=== PATIENT | female | born 1980 | race African-American/Black ===

== ENCOUNTER 2019-07-20 06:20 | Inpatient (IN) | payer OTHER ==
[2019-07-20] MEDS ORDERED: CITRIC ACID/SODIUM CITRATE 30 ML UNIT-DOSE CUP PO ONE (07:00)
[2019-07-20 07:02] VITALS: BMI 32.1
[2019-07-20] MEDS ORDERED: ELECTROLYTE-148 SOLN 1,000 ML IV ONE (07:30)
[2019-07-20] MEDS ORDERED: ELECTROLYTE-148 SOLN 1,000 ML IV SCH ×2 (07:30→08:00)
[2019-07-20] MEDS ORDERED: ONDANSETRON 4 MG/2 ML VIAL IVPUSH PRN (07:39)
--- NOTE | 2019-07-20 08:13 | HP ---
Past Medical History - Primary Care Physician PCP:: Jay Jay Acuna - Admission Chief Complaint: 38 weeks, IDDM,HTN, obesity , fibroid uterus, breech. ama History of Present Illness: 38 yo f with hx of IDDM on insulin pump. chronic HTN , fibroid uterus, iugr, AMA, previous c/s, obesity. admitted for repeat c/s, procedure risks discussed History Source: Patient Limitations to Obtaining History: No Limitations - Past Medical History Cardiovascular: Yes: HTN (on labetalol and nifedpine) ...: 5 ...Para: 1 ...Term: 0 ...: 1 ...Spon : 3 ...Induced : 0 ...Multiple Gestation: 0 ...EDC by Sono: 07/31/19 Heme/Onc: Yes: Anemia - Past Surgical History Past Surgical History: Yes: Hx Myomectomy: No Hx Transabdominal Cerclage: No - Smoking History Smoking history: Never smoked Have you smoked in the past 12 months: No - Alcohol/Substance Use Hx Alcohol Use: No History of Substance Use: reports: None - Social History History of Recent Travel: No Home Medications - Allergies Allergies/Adverse Reactions: Allergies Allergy/AdvReac Type Severity Reaction Status Date / Time No Known Allergies Allergy Verified 07/20/19 07:18 - Home Medications Home Medications: Ambulatory Orders Labetalol HCl [Normodyne -] 200 mg PO BID 02/17/15 95/Iron Fum/Folic/Dha [ + Dha Combo Pack] 1 each PO DAILY 02/17 Insulin Pump [Insulin Pump - (Nf)] 1 pump SQ PRN 07/08/19 Nifedipine [Procardia Xl] 1 tab PO DAILY 07/15/19 Review of Systems - Review of Systems Constitutional: reports: No Symptoms Eyes: reports: No Symptoms HENT: reports: No Symptoms Neck: reports: No Symptoms Cardiovascular: reports: No Symptoms Respiratory: reports: No Symptoms Gastrointestinal: reports: No Symptoms Genitourinary: reports: No Symptoms Breasts: reports: No Symptoms Reported Musculoskeletal: reports: No Symptoms Integumentary: reports: No Symptoms Neurological: reports: No Symptoms Endocrine: reports: No Symptoms Hematology/Lymphatic: reports: No Symptoms Physical Exam - Maternity Vital Signs: Vital Signs Temperature 98.1 F 07/20/19 07:30 Pulse Rate 70 07/20/19 07:30 Respiratory Rate 18 07/20/19 07:30 Blood Pressure 141/74 07/20/19 07:30 O2 Sat by Pulse Oximetry (%) Constitutional: Yes: Well Nourished, No Distress, Calm, Obese Eyes: Yes: WNL, Conjunctiva Clear, EOM Intact HENT: Yes: WNL, Atraumatic, Normocephalic Neck: Yes: WNL, Supple, Trachea Midline, Thyromegaly Cardiovascular: Yes: WNL, Regular Rate and Rhythm Breast(s): Yes: WNL - Abdominal Exam/OB Fundal Height: 40 Number of Fetuses: Single Presentation: Vertex Contractions: No Intensity: Unaware Heart Rate Location: [facility] Category: I Accelerations: Non-Uniform Decelerations: None - Vaginal Exam/OB Vaginal Bleediing: No Speculum Exam: No Dilatation (cm): closed Effacement (%): 0 Amniotic Membrane Status: Intact Presentation: Lukasz Breech Station: -3 - Physical Exam Musculoskeletal: Yes: WNL Edema: Yes Edema: LLE: Trace, RLE: Trace Deep Tendon Reflex Grade: Normal +2 ...Motor Strength: WNL Psychiatric: Yes: WNL Hemorrhage Risk Assessment - Risk Factors Medium Risk Factors: Yes: Prior , uterine surgery,or multiple laparotomies, Obesity (BMI >40) Risk Score: 2 Risk Level: High Risk Problem List - Problems (1) with 38 completed weeks gestation Code(s): Z3A.38 - 38 WEEKS GESTATION OF (2) Chronic hypertension affecting Code(s): O10.919 - UNSP PRE-EXISTING HTN COMP , UNSP TRIMESTER (3) Insulin dependent diabetes mellitus Code(s): E11.9 - TYPE 2 DIABETES MELLITUS WITHOUT COMPLICATIONS; Z79.4 - INFORMATICA DEVELOPER (CURRENT) USE OF INSULIN (5) Fibroid, uterine Code(s): D25.9 - LEIOMYOMA OF UTERUS, UNSPECIFIED Qualifiers: Uterine leiomyoma location: intramural Qualified Code(s): D25.1 - Intramural leiomyoma of uterus (6) Advanced maternal age (AMA) in Code(s): [id number] - (7) Obesity Code(s): E66.9 - OBESITY, UNSPECIFIED Qualifiers: Serious obesity comorbidity presence: with serious comorbidity (8) Breech presentation Code(s): O32.1XX0 - MATERNAL CARE FOR BREECH PRESENTATION, UNSP Assessment/Plan admit for repeat c/s, risks discussed
[2019-07-20] MEDS ORDERED: OXYTOCIN 20 UNITS in 0.9% NS 20 UNIT/1,000 ML INFUS.BAG IV ONE ×2 (08:14→10:49)
[2019-07-20] MEDS ORDERED: KETOROLAC TROMETHAMINE 30 MG/1 ML VIAL ONE (08:16)
[2019-07-20] MEDS ORDERED: DEXAMETHASONE SOD PHOSPHATE 4 MG/1 ML VIAL ONE (08:16)
[2019-07-20] MEDS ORDERED: ceFAZolin SODIUM 1 GM VIAL ONE (08:39)
[2019-07-20] MEDS ORDERED: NIFEdipine E.R. 30 MG TABLET PO SCH (10:00)
[2019-07-20] MEDS ORDERED: LABETALOL HCL 200 MG TABLET (FP) PO SCH ×2 (10:00→22:00)
[2019-07-20] MEDS ORDERED: OXYTOCIN 20 UNITS in 0.9% NS 20 UNIT/1,000 ML INFUS.BAG IV SCH (10:30)
[2019-07-20] MEDS ORDERED: WITCH HAZEL 50% (TUCKS) 40 PAD/JAR PAD TP PRN (10:30)
[2019-07-20] MEDS ORDERED: BENZOCAINE 28 GM HEMORRHOIDAL OINTMENT PR PRN (10:30)
[2019-07-20] MEDS ORDERED: SIMETHICONE 80 MG TAB.CHEW (FP) PO PRN (10:30)
[2019-07-20] MEDS ORDERED: BENZOCAINE 20% 57 GM BOTTLE TP PRN (10:30)
[2019-07-20] MEDS ORDERED: METHYLERGONOVINE MALEATE 0.2 MG/1 ML AMP IM PRN (10:30)
[2019-07-20] MEDS ORDERED: oxyCODONE HCL 5 MG TABLET PO PRN ×2 (10:30)
[2019-07-20] MEDS ORDERED: diphenhydrAMINE HCL 25 MG CAPSULE (FP) PO PRN (10:30)
[2019-07-20] MEDS ORDERED: IBUPROFEN 800 MG/8 ML IJ IVPB PRN (10:30)
--- NOTE | 2019-07-20 10:44 | OP ---
Operative Note - Note: Operative Date: 07/20/19 Pre-Operative Diagnosis: preganacy 38 weeks, IDDM, CHTN , previous c/s, IUGR. AMA, fibroid uterus, obesity Operation: repeat LST c/s , lysis of pelvic adhesion Findings: live baby boy footling breech, S/A , 7/9 , , dense pelvic adhesion Post-Operative Diagnosis: Other (p) Surgeon: Jay Jay Acuna Wharf Worker: Sandeep House Anesthesia: Spinal Specimens Removed: placenta Estimated Blood Loss (mls): 700 Drains & Tubes with Location: [facility] Blood Volume Replaced (mls): 0 Operative Report Dictated: Yes
--- NOTE | 2019-07-20 11:42 | CONSULT ---
Consult Consult Specialty:: Endocrine Referred by:: Dr.Razmzan Goyal Reason for Consultation:: DMT1 - History of Present Illness Chief Complaint: post csection History of Present Illness: 38 y female,pmh Type 1 DM,preganacy 38 weeks, CHTN , previous c/s, IUGR. sp csection,post op has bs,171mg/dl,she denies nausea ,vomiting or chest pain,she is awake alert and wishes to continue using the insulin pump. - Past Medical History Cardio/Vascular: Yes: HTN (on labetalol and nifedpine) - Past Surgical History Past Surgical History: Yes: - Alcohol/Substance Use Hx Alcohol Use: No History of Substance Use: reports: None - Smoking History Smoking history: Never smoked Have you smoked in the past 12 months: No - Social History History of Recent Travel: No Home Medications - Allergies Allergies/Adverse Reactions: Allergies Allergy/AdvReac Type Severity Reaction Status Date / Time No Known Allergies Allergy Verified 07/20/19 07:18 - Home Medications Home Medications: Ambulatory Orders Labetalol HCl [Normodyne -] 200 mg PO BID 02/17/15 95/Iron Fum/Folic/Dha [ + Dha Combo Pack] 1 each PO DAILY 02/17 Insulin Pump [Insulin Pump - (Nf)] 1 pump SQ PRN 07/08/19 Nifedipine [Procardia Xl] 1 tab PO DAILY 07/15/19 Review of Systems - Review of Systems Constitutional: reports: No Symptoms Eyes: reports: No Symptoms HENT: reports: No Symptoms Neck: reports: No Symptoms Cardiovascular: reports: No Symptoms Respiratory: reports: No Symptoms Gastrointestinal: reports: No Symptoms Genitourinary: reports: No Symptoms Musculoskeletal: reports: No Symptoms Integumentary: reports: No Symptoms Neurological: reports: No Symptoms Endocrine: reports: No Symptoms Physical Exam Vital Signs: Vital Signs Temperature 97.8 F 07/20/19 09:55 Pulse Rate 68 07/20/19 11:15 Respiratory Rate 18 07/20/19 11:15 Blood Pressure 134/80 07/20/19 11:15 O2 Sat by Pulse Oximetry (%) 99 07/20/19 11:15 Constitutional: Yes: Calm Eyes: Yes: WNL HENT: Yes: WNL Neck: Yes: WNL Cardiovascular: Yes: WNL Respiratory: Yes: WNL Gastrointestinal: Yes: WNL ...Rectal Exam: Yes: Deferred Musculoskeletal: Yes: WNL Extremities: Yes: WNL Edema: No Peripheral Pulses WNL: Yes Neurological: Yes: Alert, Oriented Problem List - Problems (1) Advanced maternal age (AMA) in Problems reviewed: Yes Code(s): [id number] - (2) Breech presentation Problems reviewed: Yes Code(s): O32.1XX0 - MATERNAL CARE FOR BREECH PRESENTATION, UNSP (3) Chronic hypertension affecting Problems reviewed: Yes Code(s): O10.919 - UNSP PRE-EXISTING HTN COMP , UNSP TRIMESTER (4) Insulin dependent diabetes mellitus Problems reviewed: Yes Code(s): E11.9 - TYPE 2 DIABETES MELLITUS WITHOUT COMPLICATIONS; Z79.4 - SENIOR DESIGNER/ART DIRECTOR (CURRENT) USE OF INSULIN Assessment/Plan Current Active Problems Advanced maternal age (AMA) in (Acute) Breech presentation (Acute) Chronic hypertension affecting (Acute) Fibroid, uterine (Acute) IUGR (intrauterine growth restriction) (Acute) Insulin dependent diabetes mellitus (Acute) Obesity (Acute) with 38 completed weeks gestation (Acute) Abnormal Lab Results 07/20/19 08:55 Cord Blood PO2 < 49 H Cord Base Excess -4.0 L Laboratory Results - last 24 hr 07/20/19 07/20/19 07/20/19 07:25 08:55 10:32 Cord Blood pH 7.30 Cord Blood PCO2 46.8 Cord Blood PO2 < 49 H Cord Blood HCO3 22.3 Cord Base Excess -4.0 L POC Glucometer 153 171 Laboratory Tests 02/20/15 07/18/19 00:39 10:09 Sodium 136 Potassium 4.1 Chloride 108 H Carbon Dioxide 21 Anion Gap 7 L BUN 12.4 Creat Clearance w eGFR > 60 Creatinine 1.0 Est GFR (CKD-EPI)AfAm 83.35 Est GFR (CKD-EPI)NonAf 71.91 Random Glucose 73 L plan: bgm q4hr insulin pump Radiant Zemax using novolog 1.4u/hr patient is capable and aware on using insulin pump no contraindication to using pump.
[2019-07-20] MEDS: INSULIN SLIDING SCALE (NOVOLOG) 1 VIAL SQ SCH ×3 (11:56→20:04)
--- NOTE | 2019-07-20 13:05 | CONSULT ---
Consult - text type - Consultation Consultation Note: Renal consult for hypertension This is a 38 year old woman with history of essential hypertension, DM type 2 on insulin pump who presented at 38 weeks gestation for scheduled now with hypertension. Pt reports that her BP was well controlled on Nifedpner ER and Labetalol during her . She feels well, denies any chest pain, shortness, of breath, headache, nausea/ vomiting. She is making urine. She has mild legs swelling. PMhx: as above Allergies: NKDA Family hx; NC Social Hx: No T/A/D ROS: As per HPI, all other pertinent ros negative Home Medications Medication Instructions Recorded Labetalol HCl [Normodyne -] 200 mg PO BID 02/17/15 95/Iron Fum/Folic/Dha 1 each PO DAILY 02/17/15 [ + Dha Combo Pack] Insulin Pump [Insulin Pump - (Nf)] 1 pump SQ PRN 07/08/19 Nifedipine [Procardia Xl] 1 tab PO DAILY 07/15/19 Vital Signs Temperature 97.8 F 07/20/19 09:55 Pulse Rate 52 L 07/20/19 12:00 Respiratory Rate 18 07/20/19 12:00 Blood Pressure 142/72 07/20/19 12:00 O2 Sat by Pulse Oximetry (%) 99 07/20/19 11:15 Intake & Output 07/17/19 07/18/19 07/19/19 07/20/19 23:59 23:59 23:59 23:59 Intake Total 2900 Output Total 1900 Balance 1000 Weight 90.265 kg NAD awake and alert neck supple no JVD RRR CTA no LE edmea no focal neurologic deficits Current Medications Benzocaine (Americaine 20% [place] -) 1 spray TP PRN PRN PRN Reason: Pain - Topical Benzocaine (Americaine Ointment -) 1 applic MS PRN PRN PRN Reason: Pain - Topical Bisacodyl (Dulcolax Suppository -) 10 mg MS PRN PRN PRN Reason: CONSTIPATION Diphenhydramine HCl (Benadryl Injection -) 25 mg IVPUSH Q4H PRN PRN Reason: Pruritis Diphenhydramine HCl (Benadryl -) 25 mg PO Q8H PRN PRN Reason: FOR ITCHING Enoxaparin Sodium (Lovenox -) 40 mg SQ DAILY [facility] Dextrose/Lactated Ringer's (D5-Lr -) 1,000 mls @ 125 mls/hr IV ASDIR [facility] Oxytocin/Sodium Chloride (Normal Saline+20 Units Oxytocin -) 20 unit in 1,000 mls @ 125 mls/hr IV ASDIR [facility] Stop: 07/20/19 18:29 Last Admin: 07/20/19 10:38 Dose: 125 mls/hr Cefazolin Sodium/Dextrose (Ancef 2 Gm Premixed Ivpb -) 2 gm in 50 mls @ 100 mls /hr IVPB Q8H-IV [facility] Stop: 07/21/19 17:59 Ibuprofen (Motrin -) 600 mg PO Q4H PRN PRN Reason: PAIN LEVEL 1 - 3 Ibuprofen (Caldolor Injection -) 800 mg IVPB Q6H PRN PRN Reason: PAIN > 5 if PO not effective. Insulin Aspart (Novolog Vial Sliding Scale -) 1 vial SQ Q4H [facility]; Protocol Last Admin: 07/20/19 11:56 Dose: 1.3 units Labetalol HCl (Normodyne -) 200 mg PO BID [facility] Methylergonovine Maleate (Methergine Injection -) 0.2 mg IM Q4H PRN PRN Reason: EXCESSIVE BLEEDING Nifedipine (Procardia Xl -) 30 mg PO DAILY [facility] Ondansetron HCl (Zofran Injection) 4 mg IVPUSH Q4H PRN PRN Reason: NAUSEA Oxycodone HCl (Roxicodone -) 5 mg PO Q4H PRN PRN Reason: PAIN LEVEL 4 - 6 Oxycodone HCl (Roxicodone -) 10 mg PO Q4H PRN PRN Reason: PAIN LEVEL 7 - 10 Senna/Docusate Sodium (Pericolace -) 2 tablet PO HS PRN PRN Reason: CONSTIPATION Simethicone (Mylicon -) 80 mg PO Q4H PRN PRN Reason: GAS Witch Madelaine/Glycerin (Tucks Pads -) 1 pad TP PRN PRN PRN Reason: Pain - Topical 38 year old woman with history of essential hypertension, DM type 2 on insulin pump who presented at 38 weeks gestation for scheduled C- section now with hypertension. 1. hypertension r/o preeclampsia 2. Essential hypertension 3. 38 weeks gestation s/p 4. Type 2 DM Check Urine protein to creatinine ratio Check CMP in AM Continue home medications: Labetalol 400mg BID and Nifedipine 30mg daily low sat diet minamize NSAID use Monitor BP closely Thank you Andres Whitney DO
[2019-07-20] MEDS ORDERED: ceFAZolin 2 GRAM PREMIX BAG IVPB SCH (18:00)
[2019-07-20] MEDS: CEFAZOLIN 2 GM/D5W 2 GM/50 ML ML IVPB SCH (18:20)
--- NOTE | 2019-07-20 18:55 | OP ---
DATE OF OPERATION: 07/20/2019 PREOPERATIVE DIAGNOSIS: 38 weeks, intrauterine growth restriction, chronic hypertension, insulin-dependent diabetes, breech presentation, previous section and fibroid uterus. POSTOPERATIVE DIAGNOSIS: 38 weeks, intrauterine growth restriction, chronic hypertension, insulin-dependent diabetes, breech presentation, previous section, fibroid uterus and pelvic adhesions. PROCEDURE PERFORMED: Repeat low-segment transverse section and lysis of pelvic adhesions. ESTIMATED BLOOD LOSS: 700 mL. SURGEON: Franklin Acuna MD BUILD MANAGER: MACEY Harper ANESTHESIA: Spinal. ANESTHESIOLOGIST: Ayush Frias M.D. FINDINGS: A live baby boy with Apgars of 7 and 9. Footling breech, delivered as a breech. Pelvic adhesions. DESCRIPTION OF PROCEDURE: The patient was taken to the operating room and had adequate spinal anesthesia. Abdomen and perineum were prepped and draped. A Pfannenstiel abdominal skin incision was made. The abdominal wall was cut layer by layer, until the peritoneum was reached. At this time the peritoneum was grasped with a Chelsy clamp and entered. There were multiple uterine and peritoneal adhesions. These adhesions were lysed meticulously with Metzenbaum scissors. Hemostasis was established. The uterus had a fibroid in the lower part of the uterus, which was adherent to the bladder. At this time the bladder adhesions were released from the fibroid and the bladder was pushed down. Then, because of the adhesions, the muscle had to be cut to create more room. Then a low transverse uterine incision was made. The incision was extended laterally with bandage scissors. The amniotic sac was entered. Clear fluid. The baby was delivered via breech without difficulty. Nasopharynx was suctioned and live baby boy was delivered with Apgars of 7 and 9. The placenta was delivered manually. The uterine cavity was cleaned of all remaining tissue. The uterine incision was closed in 2 layers, the 1st layer with 0 Biosyn continuous suture and the 2nd layer with 0 Biosyn imbricating the 1st layer. There was a small amount of bleeding at the left uterine incision, which was sutured with interrupted suture of 0 Biosyn and hemostasis was evaluated. Then the pelvic cavity was irrigated several times. No active bleeding was seen. Both tubes and ovaries were okay. Could not close the peritoneum because of adhesions. The muscles were brought together with interrupted suture of 0 Biosyn. Then the fascia was closed with 0 Biosyn continuous suture, the subcutaneous fat with interrupted suture of 0 Biosyn, and the skin was closed with marcos. The patient tolerated the procedure well, and left the OR in good condition. FRANKLIN ACUNA M.D. [id number]
[2019-07-20] MEDS: DEXTROSE 5%-LACTATED RINGERS 1,000 ML IV SCH ×2 (19:45→21:13)
[2019-07-20] MEDS: LABETALOL HCL 200 MG TABLET (FP) PO SCH (21:15)
[2019-07-21] MEDS: INSULIN SLIDING SCALE (NOVOLOG) 1 VIAL SQ SCH ×5 (00:01→16:56)
[2019-07-21] MEDS: CEFAZOLIN 2 GM/D5W 2 GM/50 ML ML IVPB SCH ×2 (02:20→10:04)
[2019-07-21] MEDS: DEXTROSE 5%-LACTATED RINGERS 1,000 ML IV SCH (05:52)
[2019-07-21 08:14] LABS: BASO % 0.6 % (0-2.0); EOS % 1.5 % (0-4.5); HEMATOCRIT 26.2 % (32.4-45.2); HEMOGLOBIN 8.8 GM/dL (10.7-15.3); LYMPH % 15.8 % (8-40); MCH 29.9 pg (25.7-33.7); MCHC 33.5 g/dl (32.0-36.0); MEAN CELL VOLUME 89.3 fl (80-96); MEAN PLT VOLUME 8.3 fl (7.5-11.1); NEUT % 74.1 % (42.8-82.8); PLATELET COUNT 233 K/MM3 (134-434); RBC 2.94 M/mm3 (3.60-5.2); RDW 13.4 % (11.6-15.6); WHITE BLOOD COUNT 13.7 K/mm3 (4.0-10.0)
--- NOTE | 2019-07-21 08:31 | PN ---
Post Progress Note - Subjective Subjective: Patient without acute complaints. Denies headache, change in vision, right upper quadrant pain. Reports tolerating oral intake without nausea or vomiting. Ambulating without dizziness. Denies fevers or chills. Pain well controlled with oral pain medication. without difficulty. Passing flatus. Post Day: 1 Type of Delivery: Repeat C/S Vital Signs: Vital Signs Temperature 97.9 F 07/21/19 05:46 Pulse Rate 60 07/21/19 05:46 Respiratory Rate 18 07/21/19 06:00 Blood Pressure 134/84 07/21/19 05:46 O2 Sat by Pulse Oximetry (%) 99 07/20/19 11:15 Breast Exam: Yes: Soft Uterus: Yes: Fundus Firm Incision: Yes: Dressing dry and intact Abdomen/GI: Yes: Abdomen soft, Abdominal Distention (+ mild soft), Tender ( incisional), Passing flatus, Tolerating PO Lochia: Yes: Rubra Lochia, amount: Moderate Extremities: Yes: Calves non-tender, Edema (trace) Activity: Ambulating - Labs Labs: CBC WBC 13.7 K/mm3 (4.0-10.0) H 07/21/19 07:44 RBC 2.94 M/mm3 (3.60-5.2) L 07/21/19 07:44 Hgb 8.8 GM/dL (10.7-15.3) L 07/21/19 07:44 Hct 26.2 % (32.4-45.2) L 07/21/19 07:44 MCV 89.3 fl (80-96) 07/21/19 07:44 MCH 29.9 pg (25.7-33.7) 07/21/19 07:44 MCHC 33.5 g/dl (32.0-36.0) 07/21/19 07:44 RDW 13.4 % (11.6-15.6) 07/21/19 07:44 Plt Count 233 K/MM3 (134-434) 07/21/19 07:44 MPV 8.3 fl (7.5-11.1) 07/21/19 07:44 Absolute Neuts (auto) 10.1 K/mm3 (1.5-8.0) H 07/21/19 07:44 Neutrophils % 74.1 % (42.8-82.8) D 07/21/19 07:44 Lymphocytes % 15.8 % (8-40) D 07/21/19 07:44 Monocytes % 8.0 % (3.8-10.2) 07/21/19 07:44 Eosinophils % 1.5 % (0-4.5) 07/21/19 07:44 Basophils % 0.6 % (0-2.0) 07/21/19 07:44 Nucleated RBC % 0 % (0-0) 07/21/19 07:44 Assessment/Plan 38 yo POD # 1 s/p R CD, afebrile, vital signs stable, doing well 1. Continue routine care. 2. AM CBC with mild anemia 3. DM 2 - appreciate endocrine input; will continue FS Q4 Per recommendations, will cover with insulin pump as needed 4. cHTN - on Labetalol 400mg BID and Nifedipine 30mg daily, appreciate renal input BPs within normal range Will monitor for signs of worsening htn or PEC 5. Rh positive status, no rhogam indicated. 7. Encourage ambulation 8. Continue oral pain medication 9. Anticipate discharge home day #2
[2019-07-21] MEDS: NIFEdipine E.R. 30 MG TABLET PO SCH (10:01)
[2019-07-21] MEDS: LABETALOL HCL 200 MG TABLET (FP) PO SCH ×2 (10:01→21:30)
[2019-07-21] MEDS: ENOXAPARIN NA (PORCINE) 40 MG/0.4 ML DISP.SYRIN SQ SCH (10:04)
[2019-07-21] MEDS ORDERED: BISACODYL 10 MG SUPP.RECT PR PRN (10:30)
--- NOTE | 2019-07-21 12:29 | PN ---
Progress Note (short form) - Note Progress Note: Renal follow up for hypertension Seen and examined at the bedside awake and alert no acute complaints no MCKEON, chest pain, abdominal pain Vital Signs Temperature 97.9 F 07/21/19 05:46 Pulse Rate 60 07/21/19 05:46 Respiratory Rate 18 07/21/19 06:00 Blood Pressure 134/84 07/21/19 05:46 O2 Sat by Pulse Oximetry (%) 99 07/20/19 11:15 Intake & Output 07/18/19 07/19/19 07/20/19 07/21/19 23:59 23:59 23:59 23:59 Intake Total 4400 1050 Output Total 3300 700 Balance 1100 350 Weight 90.265 kg NAD RRR CTA no LE edmea CBC, BMP 07/21/19 07:44 Current Medications Benzocaine (Americaine 20% [place] -) 1 spray TP PRN PRN PRN Reason: Pain - Topical Benzocaine (Americaine Ointment -) 1 applic HI PRN PRN PRN Reason: Pain - Topical Bisacodyl (Dulcolax Suppository -) 10 mg HI PRN PRN PRN Reason: CONSTIPATION Diphenhydramine HCl (Benadryl Injection -) 25 mg IVPUSH Q4H PRN PRN Reason: Pruritis Diphenhydramine HCl (Benadryl -) 25 mg PO Q8H PRN PRN Reason: FOR ITCHING Enoxaparin Sodium (Lovenox -) 40 mg SQ DAILY [facility] Last Admin: 07/21/19 10:04 Dose: 40 mg Dextrose/Lactated Ringer's (D5-Lr -) 1,000 mls @ 125 mls/hr IV ASDIR [facility] Last Admin: 07/21/19 05:52 Dose: 125 mls/hr Cefazolin Sodium/Dextrose (Ancef 2 Gm Premixed Ivpb -) 2 gm in 50 mls @ 100 mls /hr IVPB Q8H-IV [facility] Stop: 07/21/19 17:59 Last Admin: 07/21/19 10:04 Dose: 100 mls/hr Ibuprofen (Motrin -) 600 mg PO Q4H PRN PRN Reason: PAIN LEVEL 1 - 3 Ibuprofen (Caldolor Injection -) 800 mg IVPB Q6H PRN PRN Reason: PAIN > 5 if PO not effective. Insulin Aspart (Novolog Vial Sliding Scale -) 1 vial SQ Q4H [facility]; Protocol Last Admin: 07/21/19 12:20 Dose: Not Given Labetalol HCl (Normodyne -) 400 mg PO BID [facility] Last Admin: 07/21/19 10:01 Dose: 400 mg Methylergonovine Maleate (Methergine Injection -) 0.2 mg IM Q4H PRN PRN Reason: EXCESSIVE BLEEDING Nifedipine (Procardia Xl -) 30 mg PO DAILY [facility] Last Admin: 07/21/19 10:01 Dose: 30 mg Ondansetron HCl (Zofran Injection) 4 mg IVPUSH Q4H PRN PRN Reason: NAUSEA Oxycodone HCl (Roxicodone -) 5 mg PO Q4H PRN PRN Reason: PAIN LEVEL 4 - 6 Oxycodone HCl (Roxicodone -) 10 mg PO Q4H PRN PRN Reason: PAIN LEVEL 7 - 10 Senna/Docusate Sodium (Pericolace -) 2 tablet PO HS PRN PRN Reason: CONSTIPATION Simethicone (Mylicon -) 80 mg PO Q4H PRN PRN Reason: GAS Witch Madelaine/Glycerin (Tucks Pads -) 1 pad TP PRN PRN PRN Reason: Pain - Topical 38 year old woman with history of essential hypertension, DM type 2 on insulin pump who presented at 38 weeks gestation for scheduled C- section now with hypertension. 1. hypertension r/o preeclampsia 2. Essential hypertension 3. 38 weeks gestation s/p 4. Type 2 DM Urine protein to creatinine ratio is 2.3 consistant with preeclampsia Continue home medications: Labetalol 400mg BID and Nifedipine 30mg daily BP is moderated minamize NSAID use Low sodium diet Thank you Andres Whitney DO
--- NOTE | 2019-07-21 13:26 | PN ---
Progress Note (short form) - Note Progress Note: Anesthesia postop note 38 y/o F with preeclampsia, s/p spinal anesthesia/duramorph for repeat section. POD#1, vss, aaox3, pain well controlled, sensory motor intact distally. No anesthesia complications.
[2019-07-21] MEDS: IBUPROFEN 600 MG TABLET (FP) PO PRN (16:50)
[2019-07-22] MEDS: INSULIN SLIDING SCALE (NOVOLOG) 1 VIAL SQ SCH ×6 (01:00→22:36)
--- NOTE | 2019-07-22 08:24 | PN ---
Post Progress Note - Subjective Subjective: Patient reports had chills, had 100.2 temperature Mild cough No sick contacts No severe abdominal / uterine pain Denies headache, change in vision, right upper quadrant pain. Reports tolerating oral intake without nausea or vomiting. Ambulating without dizziness. Denies fevers or chills. Pain well controlled with oral pain medication. without difficulty. Passing flatus. Post Day: 2 Type of Delivery: Repeat C/S Vital Signs: Vital Signs Temperature 98.6 F 07/22/19 06:47 Pulse Rate 85 07/22/19 06:47 Respiratory Rate 07/22/19 06:47 Blood Pressure 158/78 07/22/19 06:47 O2 Sat by Pulse Oximetry (%) 99 07/20/19 11:15 Uterus: Yes: Fundus Firm, Fundus below umbilicus Incision: Yes: [place] intact. No: Redness, Oozing Abdomen/GI: Yes: Abdomen soft, Abdominal Distention (mild ), Tender (uterine tenderness, mild), Passing flatus, Tolerating PO Lochia: Yes: Rubra Lochia, amount: Small Extremities: Yes: Calves non-tender, Edema (trace) Activity: Ambulating - Labs Labs: CBC WBC 13.7 K/mm3 (4.0-10.0) H 07/21/19 07:44 RBC 2.94 M/mm3 (3.60-5.2) L 07/21/19 07:44 Hgb 8.8 GM/dL (10.7-15.3) L 07/21/19 07:44 Hct 26.2 % (32.4-45.2) L 07/21/19 07:44 MCV 89.3 fl (80-96) 07/21/19 07:44 MCH 29.9 pg (25.7-33.7) 07/21/19 07:44 MCHC 33.5 g/dl (32.0-36.0) 07/21/19 07:44 RDW 13.4 % (11.6-15.6) 07/21/19 07:44 Plt Count 233 K/MM3 (134-434) 07/21/19 07:44 MPV 8.3 fl (7.5-11.1) 07/21/19 07:44 Absolute Neuts (auto) 10.1 K/mm3 (1.5-8.0) H 07/21/19 07:44 Neutrophils % 74.1 % (42.8-82.8) D 07/21/19 07:44 Lymphocytes % 15.8 % (8-40) D 07/21/19 07:44 Monocytes % 8.0 % (3.8-10.2) 07/21/19 07:44 Eosinophils % 1.5 % (0-4.5) 07/21/19 07:44 Basophils % 0.6 % (0-2.0) 07/21/19 07:44 Nucleated RBC % 0 % (0-0) 07/21/19 07:44 Assessment/Plan 38 yo POD # 2 s/p R CD, afebrile, mild T elevation 1. Will monitor temperature, will repeat CBC Denies URI sx, no sick contacts Will monitor for worsening T elevation 2. DM 2 - appreciate endocrine input; will continue FS Q4 Per recommendations, will cover with insulin pump as needed 3. cHTN - on Labetalol 400mg BID and Nifedipine 30mg daily, appreciate renal input BPs with mild elevation overnight, no symptoms now Will monitor for signs of worsening htn or PEC 4. Encourage ambulation 5. Continue oral pain medication 6. Will continue to monitor
[2019-07-22] MEDS: LABETALOL HCL 200 MG TABLET (FP) PO SCH ×3 (08:46→21:12)
[2019-07-22] MEDS: NIFEdipine E.R. 30 MG TABLET PO SCH ×2 (08:47→11:23)
[2019-07-22] MEDS: ENOXAPARIN NA (PORCINE) 40 MG/0.4 ML DISP.SYRIN SQ SCH (09:35)
[2019-07-22] MEDS: IBUPROFEN 600 MG TABLET (FP) PO PRN (09:35)
--- NOTE | 2019-07-22 11:55 | PATH ---
Surgical Pathology Report Patient Name: AGUSTIN GOEL Med. Rec. 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 Specimen(s) Received PLACENTA Clinical History , 38.3 weeks, positive GBS, insulin-dependent diabetic, chronic hypertension, obesity, advanced maternal age Final Diagnosis PLACENTA, DELIVERY: SMALL (343 Gram) FOCALLY DISRUPTED THIRD TRIMESTER PLACENTA WITH THREE VESSEL UMBILICAL CORD AND UNREMARKABLE PLACENTAL MEMBRANES. Electronically Signed Dima Arceo M.D. Gross Description The specimen is received fresh labeled placenta and is a 343 gram, 15.5 x 12.5 x 2.0 cm. placenta with attached membranes and umbilical cord. The attached membranes are mayo, translucent with focal opacities and insert marginally. The umbilical cord measures 10 cm. in length and averages 1.3 cm. in diameter. The cord inserts eccentrically, 2 cm. to the nearest margin. No true knots or strictures are identified. Cut surface of the umbilical cord reveals 3 vessels. The surface is moreno-blue with minimal fibrin deposition and appropriate caliber vessels. The maternal surface is red-brown with focal defects. Sectioning reveals red-brown, spongy parenchyma. No lesions are identified. Reconciliation Coordinator sections are submitted in three cassettes as follows: 1- membrane rolls and umbilical cord; 2-3- full thickness sections of placenta. /07/21/2019 [facility]07/21/2019
[2019-07-22 12:10] LABS: HEMATOCRIT 28.3 % (32.4-45.2); HEMOGLOBIN 9.6 GM/dL (10.7-15.3); MCH 30.3 pg (25.7-33.7); MCHC 33.8 g/dl (32.0-36.0); MEAN CELL VOLUME 89.8 fl (80-96); MEAN PLT VOLUME 8.3 fl (7.5-11.1); PLATELET COUNT 286 K/MM3 (134-434); RBC 3.15 M/mm3 (3.60-5.2); RDW 13.4 % (11.6-15.6); WHITE BLOOD COUNT 12.4 K/mm3 (4.0-10.0)
--- NOTE | 2019-07-22 12:37 | PN ---
Progress Note (short form) - Note Progress Note: Renal follow up for hypertension BP is moderated no acute complaints Vital Signs Temperature 98.6 F 07/22/19 06:47 Pulse Rate 85 07/22/19 06:47 Respiratory Rate 20 07/22/19 06:47 Blood Pressure 158/78 07/22/19 06:47 O2 Sat by Pulse Oximetry (%) 99 07/20/19 11:15 Intake & Output 07/19/19 07/20/19 07/21/19 07/22/19 23:59 23:59 23:59 23:59 Intake Total 4400 1050 Output Total 3300 3200 Balance 1100 -2150 Weight 90.265 kg NAD no edema CBC, BMP 07/22/19 11:35 Current Medications Benzocaine (Americaine 20% [place] -) 1 spray TP PRN PRN PRN Reason: Pain - Topical Benzocaine (Americaine Ointment -) 1 applic WA PRN PRN PRN Reason: Pain - Topical Bisacodyl (Dulcolax Suppository -) 10 mg WA PRN PRN PRN Reason: CONSTIPATION Diphenhydramine HCl (Benadryl Injection -) 25 mg IVPUSH Q4H PRN PRN Reason: Pruritis Diphenhydramine HCl (Benadryl -) 25 mg PO Q8H PRN PRN Reason: FOR ITCHING Enoxaparin Sodium (Lovenox -) 40 mg SQ DAILY [facility] Last Admin: 07/22/19 09:35 Dose: 40 mg Dextrose/Lactated Ringer's (D5-Lr -) 1,000 mls @ 125 mls/hr IV ASDIR [facility] Last Admin: 07/21/19 05:52 Dose: 125 mls/hr Ibuprofen (Motrin -) 600 mg PO Q4H PRN PRN Reason: PAIN LEVEL 1 - 3 Last Admin: 07/22/19 09:35 Dose: 600 mg Ibuprofen (Caldolor Injection -) 800 mg IVPB Q6H PRN PRN Reason: PAIN > 5 if PO not effective. Insulin Aspart (Novolog Vial Sliding Scale -) 1 vial SQ Q4H [facility]; Protocol Last Admin: 07/22/19 09:20 Dose: Not Given Labetalol HCl (Normodyne -) 400 mg PO BID [facility] Last Admin: 07/22/19 11:22 Dose: Not Given Methylergonovine Maleate (Methergine Injection -) 0.2 mg IM Q4H PRN PRN Reason: EXCESSIVE BLEEDING Nifedipine (Procardia Xl -) 30 mg PO DAILY [facility] Last Admin: 07/22/19 11:23 Dose: Not Given Ondansetron HCl (Zofran Injection) 4 mg IVPUSH Q4H PRN PRN Reason: NAUSEA Oxycodone HCl (Roxicodone -) 5 mg PO Q4H PRN PRN Reason: PAIN LEVEL 4 - 6 Oxycodone HCl (Roxicodone -) 10 mg PO Q4H PRN PRN Reason: PAIN LEVEL 7 - 10 Senna/Docusate Sodium (Pericolace -) 2 tablet PO HS PRN PRN Reason: CONSTIPATION Simethicone (Mylicon -) 80 mg PO Q4H PRN PRN Reason: GAS Last Admin: 07/22/19 09:35 Dose: 80 mg Witch Madelaine/Glycerin (Tucks Pads -) 1 pad TP PRN PRN PRN Reason: Pain - Topical 38 year old woman with history of essential hypertension, DM type 2 on insulin pump who presented at 38 weeks gestation for scheduled C- section now with hypertension. 1. hypertension r/o preeclampsia 2. Essential hypertension 3. 38 weeks gestation s/p 4. Type 2 DM Urine protein to creatinine ratio is 2.3 consistent with preeclampsia Continue home medications: Labetalol 400mg BID and Nifedipine 30mg daily BP is moderated, has occasional high value but likely related to pain When cleared for discharge by OB should remain on home meds and follow up with PMD. Thank you Andres Whitney DO
--- NOTE | 2019-07-22 15:39 | PN ---
Progress Note, Physician Chief Complaint: comfortable diet improving,sugars stable - Current Medication List Current Medications: Active Medications Benzocaine (Americaine 20% [place] -) 1 spray TP PRN PRN PRN Reason: Pain - Topical Benzocaine (Americaine Ointment -) 1 applic RI PRN PRN PRN Reason: Pain - Topical Bisacodyl (Dulcolax Suppository -) 10 mg RI PRN PRN PRN Reason: CONSTIPATION Diphenhydramine HCl (Benadryl Injection -) 25 mg IVPUSH Q4H PRN PRN Reason: Pruritis Diphenhydramine HCl (Benadryl -) 25 mg PO Q8H PRN PRN Reason: FOR ITCHING Enoxaparin Sodium (Lovenox -) 40 mg SQ DAILY [facility] [place] Last Admin: 07/22/19 09:35 Dose: 40 mg Dextrose/Lactated Ringer's (D5-Lr -) 1,000 mls @ 125 mls/hr IV ASDIR [facility] [place] Last Admin: 07/21/19 05:52 Dose: 125 mls/hr Ibuprofen (Motrin -) 600 mg PO Q4H PRN PRN Reason: PAIN LEVEL 1 - 3 Last Admin: 07/22/19 09:35 Dose: 600 mg Ibuprofen (Caldolor Injection -) 800 mg IVPB Q6H PRN PRN Reason: PAIN > 5 if PO not effective. Insulin Aspart (Novolog Vial Sliding Scale -) 1 vial SQ Q4H [facility] [place]; Protocol Last Admin: 07/22/19 09:20 Dose: Not Given Labetalol HCl (Normodyne -) 400 mg PO BID [facility] [place] Last Admin: 07/22/19 11:22 Dose: Not Given Methylergonovine Maleate (Methergine Injection -) 0.2 mg IM Q4H PRN PRN Reason: EXCESSIVE BLEEDING Nifedipine (Procardia Xl -) 30 mg PO DAILY [facility] Last Admin: 07/22/19 11:23 Dose: Not Given Ondansetron HCl (Zofran Injection) 4 mg IVPUSH Q4H PRN PRN Reason: NAUSEA Oxycodone HCl (Roxicodone -) 5 mg PO Q4H PRN PRN Reason: PAIN LEVEL 4 - 6 Oxycodone HCl (Roxicodone -) 10 mg PO Q4H PRN PRN Reason: PAIN LEVEL 7 - 10 Senna/Docusate Sodium (Pericolace -) 2 tablet PO HS PRN PRN Reason: CONSTIPATION Simethicone (Mylicon -) 80 mg PO Q4H PRN PRN Reason: GAS Last Admin: 07/22/19 09:35 Dose: 80 mg Witch Madelaine/Glycerin (Tucks Pads -) 1 pad TP PRN PRN PRN Reason: Pain - Topical - Objective Vital Signs: Vital Signs Temperature 98.6 F 07/22/19 06:47 Pulse Rate 85 07/22/19 06:47 Respiratory Rate 07/22/19 06:47 Blood Pressure 158/78 07/22/19 06:47 O2 Sat by Pulse Oximetry (%) 99 07/20/19 11:15 Constitutional: Yes: Calm Eyes: Yes: EOM Intact HENT: Yes: Normocephalic Neck: Yes: Trachea Midline Cardiovascular: Yes: Regular Rate and Rhythm Respiratory: Yes: CTA Bilaterally Gastrointestinal: Yes: Normal Bowel Sounds ...Rectal Exam: Yes: Deferred Genitourinary: Yes: WNL Breast(s): Yes: WNL Musculoskeletal: Yes: WNL Extremities: Yes: WNL Peripheral Pulses WNL: Yes Neurological: Yes: Alert, Oriented Labs: CBC, BMP 07/22/19 11:35 Problem List - Problems (1) Advanced maternal age (AMA) in Code(s): [id number] - (2) Breech presentation Code(s): O32.1XX0 - MATERNAL CARE FOR BREECH PRESENTATION, UNSP (3) Chronic hypertension affecting Code(s): O10.919 - UNSP PRE-EXISTING HTN COMP , UNSP TRIMESTER (4) Insulin dependent diabetes mellitus Code(s): E11.9 - TYPE 2 DIABETES MELLITUS WITHOUT COMPLICATIONS; Z79.4 - SITE ENGINEER (CURRENT) USE OF INSULIN Assessment/Plan Current Active Problems Advanced maternal age (AMA) in (Acute) Breech presentation (Acute) Chronic hypertension affecting (Acute) Fibroid, uterine (Acute) IUGR (intrauterine growth restriction) (Acute) Insulin dependent diabetes mellitus (Acute) Obesity (Acute) with 38 completed weeks gestation (Acute) Abnormal Lab Results 07/22/19 11:35 WBC 12.4 H RBC 3.15 L Hgb 9.6 L Hct 28.3 L Laboratory Tests 07/22/19 07/22/19 07/22/19 05:55 08:38 11:51 POC Glucometer 149 139 180 Laboratory Tests 07/20/19 13:30 Hemoglobin A1c % 6.6 H plan: [id number] controlled insulin pump continue basal bolous pump with coverage per carb count patient is comfortable using the pump.
[2019-07-22] MEDS ORDERED: SENNOSIDES/DOCUSATE COMBO (SENNA PLUS) TABLET (UD) PO PRN (22:00)
[2019-07-22 22:31] VITALS: TEMP 97.8
[2019-07-23 07:06] LABS: BASO % 0.9 % (0-2.0); EOS % 3.2 % (0-4.5); HEMATOCRIT 30.1 % (32.4-45.2); HEMOGLOBIN 10.3 GM/dL (10.7-15.3); LYMPH % 20.4 % (8-40); MCH 30.2 pg (25.7-33.7); MCHC 34.3 g/dl (32.0-36.0); MEAN CELL VOLUME 88.2 fl (80-96); MEAN PLT VOLUME 7.7 fl (7.5-11.1); MONO % 6.4 % (3.8-10.2); NEUT % 69.1 % (42.8-82.8); PLATELET COUNT 314 K/MM3 (134-434); RBC 3.42 M/mm3 (3.60-5.2); RDW 13.5 % (11.6-15.6); WHITE BLOOD COUNT 10.7 K/mm3 (4.0-10.0)
[2019-07-23] MEDS: INSULIN SLIDING SCALE (NOVOLOG) 1 VIAL SQ SCH ×4 (09:22→11:41)
[2019-07-23] MEDS: ENOXAPARIN NA (PORCINE) 40 MG/0.4 ML DISP.SYRIN SQ SCH (09:28)
[2019-07-23] MEDS: LABETALOL HCL 200 MG TABLET (FP) PO SCH (09:28)
[2019-07-23] MEDS: NIFEdipine E.R. 30 MG TABLET PO SCH (09:28)
[2019-07-23 09:57] VITALS: BP 148/90; PULSE 80
--- NOTE | 2019-07-23 13:07 | DS ---
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 Vital Signs: Vital Signs Temperature 97.8 F 07/23/19 09:52 Pulse Rate 80 07/23/19 09:52 Respiratory Rate 18 07/23/19 09:52 Blood Pressure 148/90 07/23/19 09:52 O2 Sat by Pulse Oximetry (%) 99 07/20/19 11:15 Constitutional: Yes: Well Nourished, No Distress, Calm Eyes: Yes: WNL HENT: Yes: WNL Neck: Yes: WNL, Supple, Trachea Midline Cardiovascular: Yes: WNL, Regular Rate and Rhythm Respiratory: Yes: WNL, Regular, CTA Bilaterally Gastrointestinal: Yes: WNL, Normal Bowel Sounds, Soft Renal/: Yes: WNL Pelvis: Yes: WNL External Genitalia: Yes: Normal Internal Exam Deferred: Yes ....Post : Yes: Uterus firm, Uterus non-tender Breast(s): Yes: WNL Musculoskeletal: Yes: WNL Extremities: Yes: WNL Integumentary: Yes: WNL Wound/Incision: Yes: Clean/Dry, Well Approximated Neurological: Yes: WNL, Alert, Oriented ...Motor Strength: WNL Psychiatric: Yes: WNL, Alert, Oriented Labs: CBC, BMP 07/23/19 06:30 Delivery - Delivery Type of Anesthesia: Spinal Episiotomy/Laceration: None EBL (cc): 700 Delivery, Single - Stages of Labor Date of Delivery: 07/20/19 Time of Delivery: 08:55 Time Placenta Delivered: 08:56 - Condition of Infant Senior Strategy Analyst/Spiritual Minister Present: Yes Name: Shakira Cortez Gender: Male Weight: 6 lb 10 oz Total Hours ROM (Hrs/Mins): 0/2 - 1 Minute Total Score: 7 5 Minutes Total Score: 9 - Feeding Plan Initial Plan: Elected not to breastfeed exclusively throughout hospitalization Discharge Summary Problems reviewed: Yes Reason For Visit: SCHEDULED Current Active Problems Advanced maternal age (AMA) in (Acute) Breech presentation (Acute) Chronic hypertension affecting (Acute) Fibroid, uterine (Acute) IUGR (intrauterine growth restriction) (Acute) Insulin dependent diabetes mellitus (Acute) Obesity (Acute) with 38 completed weeks gestation (Acute) Procedures: Principal: Repeat c/section Other Procedures: Circumsision Hospital Course: Unremarcable Health Concerns: IDDM, hypertension Condition: Good - Instructions Diet, Activity, Other Instructions: Follow up 1-2 weeks for visit; 4-6 weeks for visit Physical activity Resume your normal everyday activity as tolerated no heavy lifting or exercise until seen by your surgeon. You may walk unlimited harriett of and climb stairs. You may resume driving the car when you feel safe and comfortable behind the wheel. No sexual activity as instructed. Wound care If you have a bandage, leave it on, and keep dry for 48-72 hours. After that time discard the outer bandage. If they are tapes on the skin under the out of bandage leave them in place. They will peel off in the next 7 to 10 days. Do Not Peel them off. You may shower the day after surgery. If there are tapes present on the skin, you may shower over them. Diet There are no dietary restrictions. Eat healthy, high-fiber foods. Drink 6 to 8 glasses of liquid each day. This will assist in keeping your bowels are regular. Pain management You may take Tylenol or acetaminophen or Ibuprofen (for example, Motrin, Advil etc.) for pain. Any prescription medication is ordered should be taken as prescribed for moderate to severe pain. Call MD for any of the following: Severe pain not relieved by medication Fever of 101 or higher Excessive bleeding or drainage on dressing Inability to urinate Referrals: Jay Jay Acuna MD [Staff Physician] - Disposition: HOME - Home Medications Comprehensive Discharge Medication List: Ambulatory Orders Labetalol HCl [Normodyne -] 400 mg PO BID 02/17/15 95/Iron Fum/Folic/Dha [ + Dha Combo Pack] 1 each PO DAILY 02/17 Insulin Pump [Insulin Pump - (Nf)] 1 pump SQ PRN 07/08/19 Nifedipine [Procardia Xl] 1 tab PO DAILY 07/15/19
== END 2019-07-23 14:10 | disposition home or self-care (01) | DRG 788 ==
LOC: JLDR 06:20 → J3W 17:30
PROVIDERS: ADMIT Obstetrics & Gynecology; ATTEND Obstetrics & Gynecology
PROC: 10D00Z1 Extraction of Products of Conception, Low, Open Approach (ICD-10-PCS; principal; 2019-07-20)
PROC: 0DNW0ZZ Release Peritoneum, Open Approach (ICD-10-PCS; 2019-07-20)
DX: O16.4 Unspecified maternal hypertension, complicating childbirth (principal); O24.92 Unspecified diabetes mellitus in childbirth; O34.13 Maternal care for benign tumor of corpus uteri, third trimester; O32.1XX0 Maternal care for breech presentation, not applicable or unspecified; O34.219 Maternal care for unspecified type scar from previous cesarean delivery; O36.5930 Maternal care for other known or suspected poor fetal growth, third trimester, not applicable or unspecified; N73.6 Female pelvic peritoneal adhesions (postinfective); Z3A.38 38 weeks gestation of pregnancy; Z37.0 Single live birth; Z79.4 Long term (current) use of insulin
CPT/HCPCS: 36415; 36600; 82570; 82803; 82962; 83036; 84156; 85025; 85027; 88307-TC

== ENCOUNTER 2022-03-19 10:00 | Inpatient (IN) | payer BC ==
[2022-03-19] MEDS ORDERED: CITRIC ACID/SODIUM CITRATE 30 ML UNIT-DOSE CUP PO ONE (11:14)
[2022-03-19] MEDS ORDERED: ELECTROLYTE-148 SOLN 1,000 ML IV SCH (11:15)
[2022-03-19 11:46] VITALS: BMI 31.6
[2022-03-19] MEDS ORDERED: PROPOFOL 40 ML ONE (12:08)
[2022-03-19] MEDS ORDERED: METHYLERGONOVINE MALEATE 0.2 MG/1 ML AMP IM PRN (13:44)
[2022-03-19] MEDS ORDERED: ACETAMINOPHEN 325 MG TABLET (FP) PO PRN (13:44)
[2022-03-19] MEDS ORDERED: SIMETHICONE 80 MG TAB.CHEW (FP) PO PRN (13:44)
[2022-03-19] MEDS ORDERED: ACETAMINOPHEN 1000 MG/100 ML BAG IVPB PRN (13:46)
[2022-03-19 14:42] LABS: CORD BASE EXCESS -2.4 mmol/L (0-2); CORD HCO3 24.4 mmHg (20-29); CORD PCO2 50.5 mmHg (30-78); CORD pH 7.302 (7.14-7.44)
[2022-03-19 14:44] LABS: CORD BASE EXCESS -5.2 mmol/L (0-2); CORD HCO3 21.3 mmHg (20-29); CORD PCO2 45.3 mmHg (30-78); CORD pH 7.291 (7.14-7.44)
[2022-03-19] MEDS ORDERED: CEFAZOLIN SODIUM 2 GM in DEXTROSE 5%-WATER 100 ML IVPB SCH (18:00)
[2022-03-19] MEDS ORDERED: ceFAZolin 2 GRAM PREMIX BAG IVPB SCH (18:00)
[2022-03-19] MEDS: INSULIN SLIDING SCALE (NOVOLOG) 1 VIAL SQ SCH ×2 (18:17→22:10)
[2022-03-19] MEDS: CEFAZOLIN SODIUM 2 GM in DEXTROSE 5%-WATER 100 ML IVPB SCH (20:41)
[2022-03-20] MEDS ORDERED: oxyCODONE HCL 5 MG TABLET PO PRN ×2 (01:45)
[2022-03-20] MEDS: OXYTOCIN 20 UNITS in 0.9% NS 20 UNIT/1,000 ML INFUS.BAG IV SCH ×3 (02:41→16:34)
[2022-03-20] MEDS: CEFAZOLIN SODIUM 2 GM in DEXTROSE 5%-WATER 100 ML IVPB SCH ×2 (03:46→13:29)
[2022-03-20] MEDS: IBUPROFEN 600 MG TABLET (FP) PO PRN ×3 (06:13→22:21)
[2022-03-20] MEDS: INSULIN SLIDING SCALE (NOVOLOG) 1 VIAL SQ SCH ×4 (06:30→22:00)
[2022-03-20 08:53] LABS: BASO % 0.6 % (0-2.0); EOS % 2.2 % (0-4.5); HEMATOCRIT 27.7 % (32.4-45.2); HEMOGLOBIN 9.5 GM/dL (10.7-15.3); LYMPH % 10.9 % (8-40); MCH 30.8 pg (25.7-33.7); MCHC 34.2 g/dl (32.0-36.0); MEAN CELL VOLUME 89.9 fl (80-96); MEAN PLT VOLUME 8.4 fl (7.5-11.1); MONO % 11.2 % (3.8-10.2); NEUT % 75.1 % (42.8-82.8); PLATELET COUNT 250 10^3/uL (134-434); RBC 3.08 M/mm3 (3.60-5.2); RDW 15.1 % (11.6-15.6); WHITE BLOOD COUNT 8.7 K/mm3 (4.0-10.0)
[2022-03-20] MEDS: ENOXAPARIN NA (PORCINE) 40 MG/0.4 ML DISP.SYRIN SQ SCH (10:35)
[2022-03-20] MEDS: NIFEdipine E.R. 30 MG TABLET PO SCH (10:35)
[2022-03-20] MEDS ORDERED: BISACODYL 10 MG SUPP.RECT RC PRN (13:45)
[2022-03-21] MEDS: INSULIN SLIDING SCALE (NOVOLOG) 1 VIAL SQ SCH ×4 (06:52→22:04)
[2022-03-21] MEDS: IBUPROFEN 600 MG TABLET (FP) PO PRN ×2 (09:07→22:02)
[2022-03-21] MEDS: NIFEdipine E.R. 30 MG TABLET PO SCH (10:27)
[2022-03-21] MEDS: ENOXAPARIN NA (PORCINE) 40 MG/0.4 ML DISP.SYRIN SQ SCH (10:27)
[2022-03-21 11:21] VITALS: RESP 18
[2022-03-22] MEDS: INSULIN SLIDING SCALE (NOVOLOG) 1 VIAL SQ SCH ×2 (07:34→12:15)
[2022-03-22 09:30] LABS: BASO % 0.8 % (0-2.0); EOS % 3.5 % (0-4.5); HEMATOCRIT 28.8 % (32.4-45.2); HEMOGLOBIN 10.1 GM/dL (10.7-15.3); LYMPH % 16.5 % (8-40); MCH 31.6 pg (25.7-33.7); MCHC 34.9 g/dl (32.0-36.0); MEAN CELL VOLUME 90.6 fl (80-96); MEAN PLT VOLUME 7.5 fl (7.5-11.1); MONO % 6.8 % (3.8-10.2); NEUT % 72.4 % (42.8-82.8); PLATELET COUNT 293 10^3/uL (134-434); RBC 3.18 M/mm3 (3.60-5.2); RDW 14.8 % (11.6-15.6); WHITE BLOOD COUNT 8.7 K/mm3 (4.0-10.0)
[2022-03-22] MEDS: IBUPROFEN 600 MG TABLET (FP) PO PRN (09:33)
[2022-03-22 09:34] VITALS: BP 139/81; PULSE 82; TEMP 98
[2022-03-22] MEDS: NIFEdipine E.R. 30 MG TABLET PO SCH (09:34)
[2022-03-22] MEDS: ENOXAPARIN NA (PORCINE) 40 MG/0.4 ML DISP.SYRIN SQ SCH (09:34)
== END 2022-03-22 15:10 | disposition home or self-care (01) | DRG 783 ==
LOC: JLDR 10:00 → J3W 18:10
PROVIDERS: ADMIT Obstetrics & Gynecology; ATTEND Obstetrics & Gynecology
PROC: 10D00Z1 Extraction of Products of Conception, Low, Open Approach (ICD-10-PCS; principal; 2022-03-20)
PROC: 0UT70ZZ Resection of Bilateral Fallopian Tubes, Open Approach (ICD-10-PCS; 2022-03-20)
DX: O34.211 Maternal care for low transverse scar from previous cesarean delivery (principal); O24.02 Pre-existing type 1 diabetes mellitus, in childbirth; O10.92 Unspecified pre-existing hypertension complicating childbirth; O99.824 Streptococcus B carrier state complicating childbirth; Z3A.38 38 weeks gestation of pregnancy; Z37.0 Single live birth; Z79.4 Long term (current) use of insulin; Z96.41 Presence of insulin pump (external) (internal); Z30.2 Encounter for sterilization
CPT/HCPCS: 36415; 36600; 59025; 80048; 82803; 82962; 85025; 85610; 85730; 86780; 86850; 86900; 86901; 88305-TC; 88307-TC; C9803-CS; U0003; U0005

== ENCOUNTER 2022-06-13 21:02 | Emergency (ER) | payer BC ==
[2022-06-13 21:08] VITALS: PULSE 98; RESP 18; BMI 30.8
[2022-06-13] MEDS ORDERED: POLYETHYLENE GLYCOL 3350 255 GM BTL PO ONE (23:11)
[2022-06-13] MEDS ORDERED: MINERAL OIL ENEMA 133 ML ENEMA PR ONE (23:12)
[2022-06-13] MEDS ORDERED: LIDOCAINE HCL 2% JELLY 10 ML CARTRIDGE PR ONE (23:12)
[2022-06-14] MEDS ORDERED: LIDOCAINE HCL 2% JELLY 11 ML TP ONE (00:27)
[2022-06-14 01:42] VITALS: BP 159/92; TEMP 98.5
== END 2022-06-14 01:52 | disposition home or self-care (01) ==
LOC: JER 21:02
DX: K56.41 Fecal impaction (principal)
CPT/HCPCS: 74018-TC-FY; 99283-25

== ENCOUNTER 2023-11-11 18:11 | Emergency (ER) | payer BC, OTHER ==
[2023-11-11 18:22] VITALS: TEMP 97.7; BMI 61.2
[2023-11-11 20:10] LABS: BASO % 1.5 % (0-2.0); EOS % 8.7 % (0-4.5); HEMATOCRIT 39.3 % (32.4-45.2); HEMOGLOBIN 13.5 GM/dL (10.7-15.3); LYMPH % 40.3 % (8-40); MCH 29.2 pg (25.7-33.7); MCHC 34.3 g/dl (32.0-36.0); MEAN CELL VOLUME 85.3 fl (80-96); MEAN PLT VOLUME 7.9 fl (7.5-11.1); MONO % 6.1 % (3.8-10.2); NEUT % 43.4 % (42.8-82.8); PLATELET COUNT 354 10^3/uL (134-434); RBC 4.61 M/mm3 (3.60-5.2); RDW 13.8 % (11.6-15.6); WHITE BLOOD COUNT 6.3 K/mm3 (4.0-10.0)
[2023-11-11 20:16] LABS: INR 0.91 (0.83-1.09); PROTHROMBIN TIME (PATIENT) 10.3 SEC (9.7-13.0)
[2023-11-11 20:19] LABS: ACTIVATED PTT 31.4 SECONDS (25.2-36.5)
[2023-11-11 20:28] LABS: POTASSIUM 3.9 mmol/L (3.5-5.1)
[2023-11-11 20:29] LABS: CALCIUM 9.3 mg/dL (8.5-10.1)
[2023-11-11 20:30] LABS: ALBUMIN 3.4 g/dl (3.4-5.0); BLOOD UREA NITROGEN 12.2 mg/dL (7-18); MAGNESIUM 1.6 mg/dL (1.8-2.4)
[2023-11-11 20:33] LABS: CREATININE 1.1 mg/dL (0.55-1.3)
[2023-11-11 20:35] LABS: TOT PROT 7.2 g/dl (6.4-8.2)
[2023-11-11 20:36] LABS: BILIRUBIN,TOTAL 0.3 mg/dL (0.2-1)
[2023-11-11] MEDS: SODIUM CHLORIDE 1,000 ML IV STA (20:36)
[2023-11-11 20:37] LABS: HCG,QUALITATIVE URINE Negative
[2023-11-11 21:20] LABS: EPI CELLS 7 /uL (0-25.1); HYALINE CASTS 0 /uL (0-3.1); URINE APPEARANCE CLEAR; URINE BACTERIA 28 /uL (0-1359); URINE BILIRUBIN NEGATIVE (NEGATIVE); URINE COLOR YELLOW; URINE GLUCOSE (UA) NEGATIVE (NEGATIVE); URINE KETONE NEGATIVE (NEGATIVE); URINE LEUK ESTERASE NEGATIVE (NEGATIVE); URINE NITRITE NEGATIVE (NEGATIVE); URINE PROTEIN 3+ (NEGATIVE); URINE RBC 700 /uL (0-23.9); URINE UROBILINOGEN 0.2 mg/dL (0.2-1.0); URINE WBC 15 /uL (0-25.8)
[2023-11-12] MEDS ORDERED: TICAGRELOR 90 MG TABLET PO ONE (00:02)
[2023-11-12] MEDS ORDERED: ASPIRIN 81 MG CHEWABLE TABLETS ONE (00:03)
[2023-11-12] MEDS: ASPIRIN 81 MG CHEWABLE TABLETS PO ONE (00:06)
[2023-11-12] MEDS: TICAGRELOR 60 MG TABLET PO ONE (00:07)
[2023-11-12] MEDS ORDERED: HEPARIN NA (PORCINE) 5,000 UNITS/ML 1ML VIAL ONE (00:08)
[2023-11-12] MEDS ORDERED: HEPARIN INFUSION - 25,000 UNITS/500 ML INFUS.BAG IVPB ONE (00:08)
[2023-11-12] MEDS ORDERED: ATORVASTATIN CA 80 MG TABLET (FP) ONE (00:13)
[2023-11-12] MEDS: ATORVASTATIN CA 80 MG TABLET (FP) PO ONE (00:18)
[2023-11-12] MEDS: HEPARIN NA (PORCINE) 5,000 UNITS/ML 1ML VIAL IVPUSH ONE (00:28)
[2023-11-12] MEDS: HEPARIN - 25,000 UNIT in SODIUM CHLORIDE 495 ML IV SCH (00:28)
[2023-11-12] MEDS: HEPARIN INFUSION - 25,000 UNITS/500 ML INFUS.BAG IVPB SCH (00:35)
[2023-11-12 01:32] VITALS: BP 142/92; PULSE 88; RESP 20
[2023-11-12] MEDS ORDERED: TICAGRELOR 90 MG TABLET PO SCH (10:00)
== END 2023-11-12 01:32 | disposition short-term general hospital (02) ==
LOC: JER 18:11
PROC: 3E0337Z Introduction of Electrolytic and Water Balance Substance into Peripheral Vein, Percutaneous Approach (ICD-10-PCS; 2023-11-11)
PROC: 3E030GC Introduction of Other Therapeutic Substance into Peripheral Vein, Open Approach (ICD-10-PCS; principal; 2023-11-12)
DX: I21.4 Non-ST elevation (NSTEMI) myocardial infarction (principal); I10 Essential (primary) hypertension; R55 Syncope and collapse; R00.0 Tachycardia, unspecified
CPT/HCPCS: 36415; 70496-TC; 70498-TC; 71046-TC-FY; 71275-TC; 80053; 80061; 81003; 83036; 83735; 84484; 84703; 85025; 85610; 85730; 87077; 87086; 93005; 93010; 99291; J1644; Q9967